=== PATIENT | male | born 1960 | race Caucasian/White ===

== ENCOUNTER → 2016-10-08 | Outpatient (CLI) | payer MEDICAID ==
[~2016-10-08] MED LIST: GADOBUTROL 10 ML VIAL IVP ONE
== END ==
LOC: FIMAGING 08:26
PROVIDERS: ATTEND Internal Medicine Hematology & Oncology
DX: C79.51 Secondary malignant neoplasm of bone (principal); C61 Malignant neoplasm of prostate; M46.96 Unspecified inflammatory spondylopathy, lumbar region; M48.06 Spinal stenosis, lumbar region
CPT/HCPCS: A9585

== ENCOUNTER → 2017-10-26 | Outpatient (CLI) | payer MEDICAID | LOC: FIMAGING 10:07 | PROVIDERS: ATTEND Internal Medicine Hematology & Oncology | DX: R97.20 Elevated prostate specific antigen [PSA] (principal); R93.8 Abnormal findings on diagnostic imaging of other specified body structures; Z85.46 Personal history of malignant neoplasm of prostate | CPT/HCPCS: 78306; A9503 ==

== ENCOUNTER → 2018-06-08 | Outpatient (CLI) | payer OTHER, MEDICAID | LOC: FIMAGING 10:32 | PROVIDERS: ATTEND Internal Medicine Hematology & Oncology | DX: M89.8X2 Other specified disorders of bone, upper arm (principal); C61 Malignant neoplasm of prostate | CPT/HCPCS: 73010; 73060; 78306; A9503 ==

== ENCOUNTER → 2018-09-05 | Outpatient (CLI) | payer OTHER, MEDICAID | LOC: FIMAGING 10:26 | PROVIDERS: ATTEND Physician Assistant | DX: C61 Malignant neoplasm of prostate (principal); C79.51 Secondary malignant neoplasm of bone | CPT/HCPCS: 78306; A9503 ==

== ENCOUNTER → 2018-12-14 | Outpatient (CLI) | payer OTHER, MEDICAID | LOC: FIMAGING 11:08 | PROVIDERS: ATTEND Internal Medicine Hematology & Oncology | PROC: CP1Z1ZZ Planar Nuclear Medicine Imaging of Musculoskeletal System, All using Technetium 99m (Tc-99m) (ICD-10-PCS; principal; 2018-12-14) | DX: C79.51 Secondary malignant neoplasm of bone (principal); C61 Malignant neoplasm of prostate | CPT/HCPCS: 78306; A9503 ==